=== PATIENT | female | born 1935 | race Caucasian/White ===

== ENCOUNTER 2023-01-16 09:51 | Inpatient (IN) ==
[2023-01-16] MEDS ORDERED: 0.9 % SODIUM CHLORIDE 1,000 ML IV ONE (10:07)
[2023-01-16 10:34] LABS: POC Calcium, Ionized 1.24 (1.16-1.32); POC Creatinine 0.9 (0.6-1.2)
[2023-01-16] MEDS ORDERED: cefTRIAXone 1 GM VIAL IV ONE (11:32)
[2023-01-16] MEDS ORDERED: AZITHROMYCIN 500 MG in DEXTROSE 5% IN WATER 250 ML IV ONE (11:32)
[2023-01-16] MEDS ORDERED: OSELTAMIVIR PHOSPHATE 75 MG CAPSULE PO ONE (11:32)
[2023-01-16 11:34] LABS: Hematocrit 44.1 % (34.1-44.9); Hemoglobin 14.7 g/dL (11.2-15.7); Mean Cell Volume 90.9 fL (80.0-100.0); Mean Corpuscular HGB Conc 33.3 g/dL (31.0-36.0); Mean Platelet Volume 11.5 fL (8.8-12.5); Platelet Count 339 K/mcL (140-440); RBC 4.85 M/mcL (3.59-5.38); Red Cell Distribution Width 14.2 % (11.5-14.5); WBC 6.6 K/mcL (4.5-11.0)
[2023-01-16 12:22] LABS: Eosinophils % (Manual) 1 % (0-7); Lymphocytes % 19 % (15-49); Monocytes % (Manual) 8 % (1-12); Platelet Estimate NORMAL (Normal); RBC Morphology NORMAL (Normal); Reactive Lymphocytes 1 % (0-2); Segmented Neutrophils % 71 % (38-78)
[2023-01-16 13:05] LABS: ALT/SGPT 91 U/L (<40); AST/SGOT 229 U/L (<32); Albumin 3.1 gm/dL (3.2-5.2); Alkaline Phosphatase 225 U/L (39-117); Bilirubin,Direct 0.5 mg/dL (<0.3); Bilirubin,Total 0.9 mg/dL (0.1-1.0); Globulin 4.2 gm/dL (2.2-3.7); proBNP 654.7 pg/mL (<450.0)
[2023-01-16 13:06] LABS: POC INR 1.1 (0.8-1.2); POC Pro Time 13.2 (11.9-14.5)
[2023-01-16] MEDS ORDERED: ONDANSETRON 4 MG/2 ML VIAL ONE (13:53)
[2023-01-16] MEDS ORDERED: ONDANSETRON 4 MG/2 ML VIAL IV ONE (13:53)
[2023-01-16 16:58] LABS: Appearance,Urine HAZY (Clear); Bilirubin,Urine NEG (Negative); Color,Urine YELLOW; Glucose,Urine (UA) NEG (Negative); Ketones,Urine 20 mg/dL (Negative); Leukocyte Esterase,Urine NEG /uL (Negative); Mucus,Urine FEW /hpf; Nitrate,Urine NEG (Negative); Protein,Urine NEG (Negative); Urine Blood NEG (Negative); Urine RBC 2 /hpf (0-3); Urine Squamous Epithelial Cell < 1 /hpf (0-4); Urine WBC 8 /hpf (0-4); Urobilinogen,Urine NEG
[2023-01-16] MEDS ORDERED: SENNOSIDES 1 TABLET PO PRN (19:30)
[2023-01-16] MEDS ORDERED: ACETAMINOPHEN 325 MG TABLET PO PRN (19:30)
[2023-01-16] MEDS ORDERED: LACTULOSE 20 GM/30 ML ORAL.SOL PO PRN (19:30)
[2023-01-16] MEDS ORDERED: VANCOMYCIN PER PHARMACY IV SCH (19:30)
[2023-01-16] MEDS ORDERED: ONDANSETRON 4 MG/2 ML VIAL IV PRN (19:30)
[2023-01-16] MEDS ORDERED: HYDROcodone/APAP 5/325MG TABLET PO PRN (19:30)
[2023-01-16] MEDS: IPRATROPIUM/ALBUTEROL 3 ML AMPUL.NEB NEB SCH (20:55)
[2023-01-16] MEDS: BUDESONIDE 0.5 MG/2 ML AMPUL.NEB NEB SCH (20:55)
[2023-01-16] MEDS ORDERED: VANCOMYCIN 750 MG in 0.9 % SODIUM CHLORIDE 250 ML IV ONE (21:00)
[2023-01-16] MEDS: DOCUSATE SODIUM 100 MG CAPSULE PO SCH (21:41)
[2023-01-16] MEDS: PIPERACILLIN SODIUM/TAZOBACTAM 3.375 GM in DEXTROSE 5% IN WATER 50 ML IV SCH (21:55)
[2023-01-16] MEDS: 0.9 % SODIUM CHLORIDE 10 ML SYRINGE IV SCH (21:56)
[2023-01-16] MEDS ORDERED: OSELTAMIVIR PHOSPHATE 30 MG CAPSULE PO ONE (23:00)
[2023-01-16 23:06] LABS: ALT/SGPT 90 U/L (<40); AST/SGOT 241 U/L (<32); Albumin 2.5 gm/dL (3.2-5.2); Albumin/Globulin Ratio 0.7 (1.0-2.3); Alkaline Phosphatase 207 U/L (39-117); Bilirubin,Total 0.9 mg/dL (0.1-1.0); Blood Urea Nitrogen 15 mg/dL (8-23); Carbon Dioxide 23 mmol/L (22-30); Chloride 100 mmol/L (96-108); Globulin 3.8 gm/dL (2.2-3.7); Glomerular Filtration Rate 57; Glucose 78 mg/dL (70-105)
[2023-01-16] MEDS ORDERED: ALPRAZolam 0.5 MG TABLET ONE (23:42)
[2023-01-16] MEDS: ALPRAZolam 0.5 MG TABLET PO PRN (23:44)
[2023-01-17] MEDS: IPRATROPIUM/ALBUTEROL 3 ML AMPUL.NEB NEB SCH ×4 (01:00→19:25)
[2023-01-17] MEDS: PIPERACILLIN SODIUM/TAZOBACTAM 3.375 GM in DEXTROSE 5% IN WATER 50 ML IV SCH ×3 (04:08→14:36)
[2023-01-17] MEDS: 0.9 % SODIUM CHLORIDE 10 ML SYRINGE IV SCH ×3 (04:09→20:59)
[2023-01-17 06:59] LABS: Basophils # (Auto) 0.02 K/mcL (0.00-0.30); Basophils % (Auto) 0.3 % (0.0-2.0); Eosinophils # (Auto) 0 K/mcL (0.00-0.70); Eosinophils % (Auto) 0 % (0.0-7.0); Hematocrit 38.5 % (34.1-44.9); Hemoglobin 12.4 g/dL (11.2-15.7); Lymphocytes # (Auto) 0.98 K/mcL (1.50-4.80); Lymphocytes % (Auto) 12.8 % (15.5-49.0); Mean Cell Volume 94.6 fL (80.0-100.0); Mean Corpuscular HGB Conc 32.2 g/dL (31.0-36.0); Mean Platelet Volume 10.7 fL (8.8-12.5); Monocytes # (Auto) 0.96 K/mcL (0.10-0.90); Monocytes % (Auto) 12.6 % (1.0-12.0); Neutrophils % (Auto) 73.9 % (38.0-78.0); Platelet Count 278 K/mcL (140-440); RBC 4.07 M/mcL (3.59-5.38); Red Cell Distribution Width 14.6 % (11.5-14.5); WBC 7.6 K/mcL (4.5-11.0)
[2023-01-17] MEDS: BUDESONIDE 0.5 MG/2 ML AMPUL.NEB NEB SCH ×2 (07:14→19:45)
[2023-01-17 07:28] LABS: ALT/SGPT 109 U/L (<40); AST/SGOT 306 U/L (<32); Albumin 2.4 gm/dL (3.2-5.2); Albumin/Globulin Ratio 0.7 (1.0-2.3); Alkaline Phosphatase 227 U/L (39-117); Bilirubin,Total 1.7 mg/dL (0.1-1.0); Blood Urea Nitrogen 15 mg/dL (8-23); Calcium 8.7 mg/dL (8.6-10.4); Carbon Dioxide 23 mmol/L (22-30); Chloride 101 mmol/L (96-108); Globulin 3.6 gm/dL (2.2-3.7); Glomerular Filtration Rate 65; Glucose 86 mg/dL (70-105)
[2023-01-17] MEDS: OSELTAMIVIR PHOSPHATE 30 MG CAPSULE PO SCH ×2 (10:03→20:59)
[2023-01-17] MEDS: ENOXAPARIN 30 MG/0.3 ML SYRINGE SQ SCH (10:04)
[2023-01-17] MEDS: DOCUSATE SODIUM 100 MG CAPSULE PO SCH ×2 (10:05→20:59)
[2023-01-17] MEDS: VANCOMYCIN 750 MG in 0.9 % SODIUM CHLORIDE 250 ML IV SCH (10:06)
[2023-01-17] MEDS: cefTRIAXone 1 GM VIAL IV SCH (17:07)
[2023-01-17] MEDS: ALPRAZolam 0.5 MG TABLET PO PRN (20:59)
[2023-01-18] MEDS: IPRATROPIUM/ALBUTEROL 3 ML AMPUL.NEB NEB SCH ×4 (00:54→19:18)
[2023-01-18] MEDS: 0.9 % SODIUM CHLORIDE 10 ML SYRINGE IV SCH ×4 (04:06→20:24)
[2023-01-18 06:48] LABS: Basophils # (Auto) 0.03 K/mcL (0.00-0.30); Basophils % (Auto) 0.4 % (0.0-2.0); Eosinophils # (Auto) 0.22 K/mcL (0.00-0.70); Eosinophils % (Auto) 3.2 % (0.0-7.0); Hematocrit 38.4 % (34.1-44.9); Hemoglobin 12.6 g/dL (11.2-15.7); Lymphocytes % (Auto) 13.1 % (15.5-49.0); Mean Cell Volume 93.7 fL (80.0-100.0); Mean Corpuscular HGB Conc 32.8 g/dL (31.0-36.0); Mean Platelet Volume 11.1 fL (8.8-12.5); Monocytes # (Auto) 0.77 K/mcL (0.10-0.90); Monocytes % (Auto) 11.2 % (1.0-12.0); Neutrophils % (Auto) 71.8 % (38.0-78.0); Platelet Count 302 K/mcL (140-440); Red Cell Distribution Width 14.8 % (11.5-14.5); WBC 6.9 K/mcL (4.5-11.0)
[2023-01-18] MEDS: BUDESONIDE 0.5 MG/2 ML AMPUL.NEB NEB SCH ×2 (06:59→19:18)
[2023-01-18 07:30] LABS: ALT/SGPT 119 U/L (<40); AST/SGOT 293 U/L (<32); Albumin 2.4 gm/dL (3.2-5.2); Albumin/Globulin Ratio 0.7 (1.0-2.3); Alkaline Phosphatase 214 U/L (39-117); Blood Urea Nitrogen 10 mg/dL (8-23); Calcium 9.3 mg/dL (8.6-10.4); Carbon Dioxide 25 mmol/L (22-30); Chloride 103 mmol/L (96-108); Globulin 3.4 gm/dL (2.2-3.7); Glomerular Filtration Rate 57; Glucose 87 mg/dL (70-105)
[2023-01-18] MEDS: ENOXAPARIN 30 MG/0.3 ML SYRINGE SQ SCH (09:29)
[2023-01-18] MEDS: DOCUSATE SODIUM 100 MG CAPSULE PO SCH ×2 (09:29→19:51)
[2023-01-18] MEDS: cefTRIAXone 1 GM VIAL IV SCH (11:00)
[2023-01-18] MEDS: VANCOMYCIN 750 MG in 0.9 % SODIUM CHLORIDE 250 ML IV SCH (11:00)
[2023-01-18] MEDS: OSELTAMIVIR PHOSPHATE 30 MG CAPSULE PO SCH ×2 (11:00→19:52)
[2023-01-18] MEDS ORDERED: POTASSIUM CHLORIDE 20 MEQ TABLET PO ONE ×2 (14:09→17:00)
[2023-01-18] MEDS: ALPRAZolam 0.5 MG TABLET PO PRN (19:52)
[2023-01-19] MEDS: IPRATROPIUM/ALBUTEROL 3 ML AMPUL.NEB NEB SCH ×4 (01:22→19:15)
[2023-01-19] MEDS: 0.9 % SODIUM CHLORIDE 10 ML SYRINGE IV SCH ×3 (04:51→20:05)
[2023-01-19] MEDS: BUDESONIDE 0.5 MG/2 ML AMPUL.NEB NEB SCH ×2 (06:38→19:15)
[2023-01-19 06:41] LABS: Basophils # (Auto) 0.04 K/mcL (0.00-0.30); Basophils % (Auto) 0.5 % (0.0-2.0); Eosinophils # (Auto) 0.23 K/mcL (0.00-0.70); Hematocrit 37.7 % (34.1-44.9); Hemoglobin 12.6 g/dL (11.2-15.7); Mean Cell Volume 91.5 fL (80.0-100.0); Mean Corpuscular HGB Conc 33.4 g/dL (31.0-36.0); Mean Platelet Volume 11.1 fL (8.8-12.5); Monocytes # (Auto) 0.84 K/mcL (0.10-0.90); Monocytes % (Auto) 10.9 % (1.0-12.0); Neutrophils % (Auto) 72.1 % (38.0-78.0); Platelet Count 275 K/mcL (140-440); RBC 4.12 M/mcL (3.59-5.38); WBC 7.7 K/mcL (4.5-11.0)
[2023-01-19 07:10] LABS: ALT/SGPT 117 U/L (<40); AST/SGOT 287 U/L (<32); Albumin 2.5 gm/dL (3.2-5.2); Albumin/Globulin Ratio 0.7 (1.0-2.3); Alkaline Phosphatase 221 U/L (39-117); Bilirubin,Total 0.9 mg/dL (0.1-1.0); Blood Urea Nitrogen 8 mg/dL (8-23); Calcium 9.6 mg/dL (8.6-10.4); Carbon Dioxide 26 mmol/L (22-30); Chloride 103 mmol/L (96-108); Globulin 3.7 gm/dL (2.2-3.7); Glomerular Filtration Rate 77; Glucose 85 mg/dL (70-105)
[2023-01-19] MEDS: ENOXAPARIN 30 MG/0.3 ML SYRINGE SQ SCH (08:12)
[2023-01-19] MEDS: OSELTAMIVIR PHOSPHATE 30 MG CAPSULE PO SCH ×2 (08:13→20:05)
[2023-01-19] MEDS: cefTRIAXone 1 GM VIAL IV SCH (08:13)
[2023-01-19] MEDS: DOCUSATE SODIUM 100 MG CAPSULE PO SCH ×3 (08:13→20:05)
[2023-01-19] MEDS: SERTRALINE 50 MG TABLET PO SCH (10:46)
[2023-01-19] MEDS: VANCOMYCIN 750 MG in 0.9 % SODIUM CHLORIDE 250 ML IV SCH (10:46)
[2023-01-19] MEDS ORDERED: MAGNESIUM SULFATE 2 GM/50 ML BAG IV SCH (12:32)
[2023-01-19] MEDS: ALPRAZolam 0.5 MG TABLET PO PRN (20:05)
[2023-01-20] MEDS: IPRATROPIUM/ALBUTEROL 3 ML AMPUL.NEB NEB SCH ×3 (01:20→12:25)
[2023-01-20] MEDS: 0.9 % SODIUM CHLORIDE 10 ML SYRINGE IV SCH ×2 (05:10→14:26)
[2023-01-20 06:21] LABS: Basophils # (Auto) 0.04 K/mcL (0.00-0.30); Basophils % (Auto) 0.4 % (0.0-2.0); Eosinophils # (Auto) 0.22 K/mcL (0.00-0.70); Eosinophils % (Auto) 2.2 % (0.0-7.0); Hemoglobin 13.5 g/dL (11.2-15.7); Lymphocytes # (Auto) 0.98 K/mcL (1.50-4.80); Lymphocytes % (Auto) 9.7 % (15.5-49.0); Mean Cell Volume 92.6 fL (80.0-100.0); Mean Corpuscular HGB Conc 32.9 g/dL (31.0-36.0); Mean Platelet Volume 11.2 fL (8.8-12.5); Monocytes % (Auto) 9.9 % (1.0-12.0); Neutrophils % (Auto) 77.3 % (38.0-78.0); Platelet Count 297 K/mcL (140-440); RBC 4.43 M/mcL (3.59-5.38); Red Cell Distribution Width 15.3 % (11.5-14.5); WBC 10.1 K/mcL (4.5-11.0)
[2023-01-20 06:42] LABS: ALT/SGPT 110 U/L (<40); AST/SGOT 270 U/L (<32); Albumin 2.3 gm/dL (3.2-5.2); Albumin/Globulin Ratio 0.6 (1.0-2.3); Alkaline Phosphatase 223 U/L (39-117); Blood Urea Nitrogen 9 mg/dL (8-23); Calcium 9.1 mg/dL (8.6-10.4); Carbon Dioxide 25 mmol/L (22-30); Chloride 100 mmol/L (96-108); Globulin 3.9 gm/dL (2.2-3.7); Glomerular Filtration Rate 77; Glucose 74 mg/dL (70-105)
[2023-01-20] MEDS: BUDESONIDE 0.5 MG/2 ML AMPUL.NEB NEB SCH (07:02)
[2023-01-20] MEDS: SERTRALINE 50 MG TABLET PO SCH (08:11)
[2023-01-20] MEDS: OSELTAMIVIR PHOSPHATE 30 MG CAPSULE PO SCH (08:11)
[2023-01-20] MEDS: ENOXAPARIN 30 MG/0.3 ML SYRINGE SQ SCH (08:11)
[2023-01-20] MEDS: cefTRIAXone 1 GM VIAL IV SCH (08:12)
[2023-01-20] MEDS: DOCUSATE SODIUM 100 MG CAPSULE PO SCH (08:12)
[2023-01-20] MEDS: VANCOMYCIN 750 MG in 0.9 % SODIUM CHLORIDE 250 ML IV SCH (11:19)
== END 2023-01-20 14:11 | DRG 180 ==
LOC: ED 09:51 → ICU 20:15
PROVIDERS: ADMIT Internal Medicine; ATTEND Internal Medicine